=== PATIENT | female | born 1990 ===

== ENCOUNTER 2023-09-15 10:21 | Outpatient (CLI) | payer OTHER | END 2023-09-15 10:23 | disposition home or self-care (01) | LOC: PRENATAL 10:21 | PROVIDERS: ATTEND Obstetrics & Gynecology Maternal & Fetal Medicine | DX: O26.849 Uterine size-date discrepancy, unspecified trimester (principal); O36.8199 Decreased fetal movements, unspecified trimester, other fetus; Z3A.32 32 weeks gestation of pregnancy ==

== ENCOUNTER 2023-10-11 09:28 | Outpatient (CLI) | payer OTHER | END 2023-10-11 09:29 | disposition home or self-care (01) | LOC: PRENATAL 09:28 | PROVIDERS: ATTEND Obstetrics & Gynecology Maternal & Fetal Medicine | DX: O26.849 Uterine size-date discrepancy, unspecified trimester (principal); O36.8199 Decreased fetal movements, unspecified trimester, other fetus; Z3A.36 36 weeks gestation of pregnancy ==

== ENCOUNTER 2023-11-09 16:35 | Inpatient (IN) | payer OTHER ==
[~2023-11-09] VITALS: Ht 165.1 cm; Wt 69.9 kg
[2023-11-09 18:09] LABS: URINE APPEARANCE Clear; URINE BILIRRUBIN Negative (NEGATIVE); URINE BLOOD Negative; URINE COLOR Yellow; URINE GLUCOSE Negative (NEGATIVE); URINE LEUKOCYTE Moderate; URINE NITRATE Negative; URINE PROTEIN Negative (NEGATIVE); URINE UROBILINOGEN 0.2 E.U./dl
[2023-11-09 18:11] LABS: HEMATOCRIT 38.4 % (36.0-45.00); HEMOGLOBIN 13.3 g/dL (12.0-15.00); MEAN CELL VOLUME 90.1 fL (80.00-100.00); MEAN CORPUSCULAR HEMOGLOBIN 31.3 pg (27.00-32.0); MEAN CORPUSCULAR HGB CONC 34.7 g/dl (32.0-36.0); PLATELET COUNT 335 K/uL (150-450); RED BLOOD COUNT 4.26 M/uL (4.00-6.00); RED CELL DISTRIBUTION WIDTH 14.4 % (11.5-14.5)
[2023-11-09 18:12] LABS: URINE BACTERIA 356.5 uL (0.0-1933); URINE EPITHELIAL CELLS 27.8 uL (0.0-38.8); URINE WBC 21.1 uL (0.0-23.2)
[2023-11-09 18:13] LABS: URINE RBC 0.5 uL (0.0-20.8)
[2023-11-09 18:26] LABS: INR < 0.93; PARTIAL THROMBOPLASTIN TIME 27.3 SECONDS (22.0-34.0); PROTHROMBIN TIME 9.3 SECONDS (9.0-11.5)
[2023-11-09 18:30] LABS: ALBUMIN 3.1 gm/dL (3.4-5.0); BILIRUBIN TOTAL 0.29 mg/dL (0.3-1.2); CALCIUM 9.4 mg/dL (8.5-10.1); CREATININE SERUM 0.63 mg/dL (0.55-1.02); GFR 109.51; GLOBULINA 3.6 G/DL (2.4-3.5); POTASSIUM 4.43 mEq/L (3.5-5.1); TOTAL PROTEIN 6.7 gm/dL (6.4-8.2)
[2023-11-09] MEDS ORDERED: RINGERS SOLUTION,LACTATED 1,000 ML IV SCH (18:30)
[2023-11-09] MEDS ORDERED: MISOPROSTOL 25 MCG TABLET ONE (20:50)
[2023-11-09] MEDS ORDERED: MISOPROSTOL 25 MCG TABLET VAG ONE (21:00)
[2023-11-10] MEDS ORDERED: ACETAMINOPHEN 500 MG GEL..CAP PO ONE ×2 (00:10→00:15)
[2023-11-10] MEDS ORDERED: MORPHINE SULFATE 4 MG/ML VIAL IV ONE ×2 (01:30→05:30)
[2023-11-10] MEDS ORDERED: OXYTOCIN 500 ML IV SCH (08:45)
[2023-11-10] MEDS ORDERED: PRENATAL PLUS1 EAC1 PO (10:09)
[2023-11-10] MEDS ORDERED: CHLORHEXIDINE GLUCONATE 120 ML BOTTLE TOP ONE ×2 (12:39→18:00)
[2023-11-10] MEDS ORDERED: ERYTHROMYCIN BASE 1 GM TUBE OP ONE ×2 (12:39→18:00)
[2023-11-10] MEDS ORDERED: LIDOCAINE HCL 100 MG/10ML VIAL IJ ONE (18:00)
[2023-11-10] MEDS ORDERED: OXYTOCIN 1,000 ML IV SCH (18:00)
[2023-11-10] MEDS ORDERED: LIDOCAINE HCL 1% 200MG/20ML VIAL IJ SCH (18:30)
[2023-11-10] MEDS ORDERED: CHLORHEXIDINE GLUCONATE 120 ML BOTTLE TOP SCH (18:30)
[2023-11-10] MEDS ORDERED: ERYTHROMYCIN BASE 1 GM TUBE OP SCH (18:30)
[2023-11-10] MEDS ORDERED: IBUprofen 800 MG TABLET PO PRN (19:30)
[2023-11-10] MEDS ORDERED: BENZOCAINE/MENTHOL 90 ML BOTTLE TOP SCH (20:00)
[2023-11-10 22:08] LABS: ABG PH 7.259 (7.35-7.45); ABG pCO2 40.2 mmHg (35-45)
[2023-11-10 22:09] LABS: ABG PO2 26.6 mmHg (80-100); BASE EXCESS -8.9 mmol/l; BICARBONATE 17.6 mmol/l (23-25); Tco2 18.8 mmol/l; o2 21 %
[2023-11-10 22:11] LABS: SaO2 36.9 %
[2023-11-11 07:33] LABS: HEMATOCRIT 32.2 % (36.0-45.00); HEMOGLOBIN 11.3 g/dL (12.0-15.00); MEAN CELL VOLUME 90.9 fL (80.00-100.00); MEAN CORPUSCULAR HEMOGLOBIN 31.8 pg (27.00-32.0); PLATELET COUNT 278 K/uL (150-450); RED BLOOD COUNT 3.54 M/uL (4.00-6.00); RED CELL DISTRIBUTION WIDTH 13.9 % (11.5-14.5)
[2023-11-11] MEDS ORDERED: DOCUSATE SODIUM 100MG CAP PO SCH (09:00)
[2023-11-11] MEDS ORDERED: FF) RHO(D) IMMUNE GLOBULIN (POM) IM ONE (09:00)
[2023-11-12] MEDS ORDERED: NAPR500T14 PO (08:44)
== END 2023-11-12 13:13 | disposition home or self-care (01) | DRG 807 ==
LOC: OB/GYN 16:35 → LDR 16:35 → OB/GYN 11-10 17:48
PROVIDERS: Student in an Organized Health Care Education/Training Program; ADMIT Obstetrics & Gynecology; ATTEND Obstetrics & Gynecology
PROC: 4A1HXCZ Monitoring of Products of Conception, Cardiac Rate, External Approach (ICD-10-PCS; 2023-11-09)
PROC: 3E0P7VZ Introduction of Hormone into Female Reproductive, Via Natural or Artificial Opening (ICD-10-PCS; 2023-11-09)
PROC: 10E0XZZ Delivery of Products of Conception, External Approach (ICD-10-PCS; principal; 2023-11-10)
PROC: 0KQM0ZZ Repair Perineum Muscle, Open Approach (ICD-10-PCS; 2023-11-10)
PROC: 3E033VJ Introduction of Other Hormone into Peripheral Vein, Percutaneous Approach (ICD-10-PCS; 2023-11-10)
DX: O70.1 Second degree perineal laceration during delivery (principal); Z37.0 Single live birth; Z3A.40 40 weeks gestation of pregnancy; Z20.822 Contact with and (suspected) exposure to COVID-19